=== PATIENT | female | born 1995 | race Caucasian/White ===

== ENCOUNTER 2019-08-17 22:49 | Emergency (ER) | payer OTHER ==
[~2019-08-17] VITALS: Ht 167.6 cm; Wt 59.1 kg
[~2019-08-17 22:49] MED LIST: CATAPRES 0.1MG0.1 MG PO; COLACE 100100 MG/CAP PO; DILAUDID 2MG TAB2 MG PO; MOTRIN 600600 MG/TAB PO; SEROQUEL 2525 MG/TAB PO; TYLENOL 325MG325 MG PO; ULTRAM 50MG TAB50 MG PO; ZOLOFT 25MG25 MG PO
[2019-08-17 23:17] VITALS: TEMP 98.2
[2019-08-18] MEDS ORDERED: MEDROL 4MG DOSPA4 MG PO (00:41)
[2019-08-18] MEDS ORDERED: EPIPEN 2-PAK1 MG/ML IM (00:41)
[2019-08-18 02:53] VITALS: BP 110/70; PULSE 67
== END 2019-08-18 03:05 | disposition home or self-care (01) ==
LOC: COL.ER 22:49
PROVIDERS: Emergency Medicine
DX: T78.40XA Allergy, unspecified, initial encounter (principal); F41.9 Anxiety disorder, unspecified; F17.210 Nicotine dependence, cigarettes, uncomplicated
CPT/HCPCS: J1200; J2060; J2930; J7030

== ENCOUNTER → 2020-01-03 | Outpatient (CLI) | payer OTHER ==
[~2020-01-03] MED LIST changes: +EPIPEN 2-PAK1 MG/ML IM; +MEDROL 4MG DOSPA4 MG PO
== END ==
LOC: COL.RAD 13:37
DX: N97.9 Female infertility, unspecified (principal)
CPT/HCPCS: Q9967

== ENCOUNTER 2021-08-22 05:17 | Emergency (ER) | payer OTHER ==
[~2021-08-22] VITALS: Ht 157.5 cm; Wt 68.2 kg
[~2021-08-22 05:17] MED LIST changes: -ABILIFY2 MG PO; -CIPRO 500MG TA500 MG PO; -MINIPRESS 1M1 MG/CAP PO; -RISPERDAL 0.20.25 MG PO
[2021-08-22] MEDS ORDERED: ABILIFY2 MG PO (05:34)
[2021-08-22] MEDS ORDERED: RISPERDAL 0.20.25 MG PO (05:34)
[2021-08-22] MEDS ORDERED: CIPRO 500MG TA500 MG PO (05:35)
[2021-08-22] MEDS ORDERED: MINIPRESS 1M1 MG/CAP PO (05:35)
[2021-08-22 05:38] VITALS: TEMP 98.1
[2021-08-22 05:46] LABS: COLLECTION METHOD CLEAN CATCH
[2021-08-22 05:49] LABS: BASO % 0.5 % (0.0-2.0); EOS % 0.2 % (0-4.0); HEMATOCRIT 37.5 % (37.0-47.0); LYMPH % 15.1 % (20.0-51.0); MEAN CELL VOLUME 96 fl (80.0-100.0); MEAN CORPUSCULAR HEMOGLOBIN 33 pg (27.0-31.0); MEAN CORPUSCULAR HGB CONC 35 g/dl (33.0-37.0); MEAN PLATELET VOLUME 10.5 fl (7.4-10.4); MONO # 0.4 (0.1-0.6); MONO % 5.9 % (1.7-9.3); PLATELET COUNT 248 K/mm3 (130-400); RED BLOOD COUNT 3.92 M/mm3 (4.10-5.30); REDCELL DISTRIBUTION WIDTH-CV 11.9 % (11.5-14.5)
[2021-08-22 05:53] LABS: MUCOUS Present /lpf; PH 6 (5-8); SQUAMOUS EPITHELIAL 0-2 /hpf; URINE APPEARANCE Clear; URINE BACTERIA None Seen /hpf; URINE BILIRUBIN Negative (NEGATIVE); URINE BLOOD Negative (NEGATIVE); URINE COLOR Straw; URINE GLUCOSE Negative (NEGATIVE); URINE KETONE Negative (NEGATIVE); URINE LEUKOCYTE ESTERASE Negative (NEGATIVE); URINE NITRATE Negative (NEGATIVE); URINE PROTEIN(semi-quant) Negative (NEGATIVE); URINE RBC 0-2 /hpf; URINE UROBILINOGEN Negative (NEGATIVE)
[2021-08-22 06:11] LABS: ALANINE AMINOTRANSFERASE 34 U/L (0-55); ALBUMIN 4.2 gm/dL (3.5-5.0); ALCOHOL(ethanol),MEDICAL 104 mg/dL (0-10); ALKALINE PHOSPHATASE 58 U/L (0-750); ANION GAP 12 mmol/L (7-16); AST,SGOT 23 U/L (5-34); BILIRUBIN,TOTAL 0.3 mg/dL (0.2-1.2); BLOOD UREA NITROGEN 6 mg/dL (7-19); CALCIUM 9.7 mg/dL (8.4-10.2); CARBON DIOXIDE 19 mmol/L (22-29); CHLORIDE 110 mmol/L (98-107); CREATININE, serum 0.71 mg/dL (0.57-1.11); GLUCOSE 105 mg/dL (70-99); POTASSIUM 3.8 mmol/L (3.5-4.5); SODIUM 141 mmol/L (136-145); TOTAL PROTEIN 8.1 gm/dL (6.2-8.1)
[2021-08-22 06:13] LABS: TRICYCLIC ANTIDEPRESS URINE NEGATIVE
[2021-08-22 06:18] LABS: ACETAMINOPHEN < 1.0 ug/mL (10-30); SALICYLATE < 5.0 mg/dL (15.0-30.0)
[2021-08-22 20:51] VITALS: BP 109/69; PULSE 88
== END 2021-08-22 20:51 ==
LOC: COL.ER 05:17
PROVIDERS: Student in an Organized Health Care Education/Training Program
DX: R45.851 Suicidal ideations (principal); F31.9 Bipolar disorder, unspecified; F20.9 Schizophrenia, unspecified; Z20.822 Contact with and (suspected) exposure to COVID-19; Z79.899 Other long term (current) drug therapy

== ENCOUNTER → 2021-08-22 | Emergency (ER) | payer OTHER ==
[~2021-08-22] VITALS: Ht 157.5 cm; Wt 68.2 kg
[~2021-08-22] MED LIST changes: +ABILIFY2 MG PO; +CIPRO 500MG TA500 MG PO; +MINIPRESS 1M1 MG/CAP PO; +RISPERDAL 0.20.25 MG PO
[2021-08-22 05:02] VITALS: BP 128/72; PULSE 137; TEMP 98.5
== END ==
LOC: COL.ER → EDBD 04:59
DX: F20.9 Schizophrenia, unspecified (principal)